=== PATIENT | female | born 1995 | race African-American/Black ===

== ENCOUNTER 2016-09-05 10:11 | Emergency (ER) | payer OTHER ==
[~2016-09-05] VITALS: Ht 167.6 cm; Wt 77.5 kg
[~2016-09-05 10:11] MED LIST: ALBU8I INH; AMOX875T PO; BIRTHCONTROL PATCH
[2016-09-05 10:12] VITALS: BP 130/89; PULSE 70; RESP 14; TEMP 97.9; O2SAT 99
--- NOTE | 2016-09-05 10:25 | PD ---
HPI . left thumb laceration check Chief Complaint: Wound/Suture/Staple Re-Check Time Seen by Provider: 10:25 Travel History International Travel<30 days: No Contact w/Intl Traveler<30days: No Traveled to known affect area: No History of Present Illness HPI 21-year-old female here with complaints of sustaining a left thumb laceration a few days ago. She went to another hospital and had Dermabond placed at the site. She is here for recheck. She says she went to an urgent care that would not take her insurance and they sent her to the emergency department. She tells me that she thinks she needs more Dermabond or sutures. She is also concerned because she works in [employer] and concerned that she will get this extremity too wet and it will loosen. She was never given any type of excuse or for work. PFSH Past Medical History Hx Anticoagulant Therapy: No Asthma: Yes Cardiovascular Problems: Yes (PRECARDIAL CATCH SYNDROME) Chemotherapy: No Cerebrovascular Accident: No Diabetes: No Diminished Hearing: No Respiratory: Yes (ASTHMA) Immunizations Current: Yes ?: Not Menopausal: No Past Surgical History Hysterectomy: No Social History Alcohol Use: Yes Tobacco Use: No Substance Use: No Allergies-Medications (Allergen,Severity, Reaction): Uncoded Allergies: ORANGES (Allergy, Severe, Anaphylaxis, 01/13/14) Reported Meds & Prescriptions Reported Meds & Active Scripts Active Reported [albuterol sulfate] 8 Gm INH DAILY [Birthcontrol Patch] Review of Systems General / Constitutional: No: Fever Eyes: No: Visual changes HENT: No: Headaches Cardiovascular: No: Chest Pain or Discomfort Respiratory: No: Shortness of Breath Gastrointestinal: No: Abdominal Pain Genitourinary: No: Dysuria Musculoskeletal: No: Pain Skin: Positive Other (left thumb laceration ), No Rash Neurologic: No: Weakness Psychiatric: No: Depression Endocrine: No: Polydipsia Hematologic/Lymphatic: No: Easy Bruising Physical Exam Narrative GENERAL: AAO x 3, no acute distress, Well-nourished, well-developed patient. SKIN: Warm and dry. No visible rashes or bruising. left thumb near anatomical snuffbox; 1 cm laceration that is healing well. There is no dehiscence or cellulitis present. HEAD: Normocephalic and atraumatic. EYES: No scleral icterus. No injection or drainage. ENT: No nasal drainage noted. Airway patent. NECK: Supple, trachea midline. No JVD. CARDIOVASCULAR: Regular rate and rhythm without murmurs, gallops, or rubs. RESPIRATORY: Breath sounds equal bilaterally. No accessory muscle use. No rhonchi or rales. GASTROINTESTINAL: Visual inspection normal EXTREMITIES: No cyanosis or edema. BACK: Nontender without obvious deformity. No CVA tenderness. PSYCH: AAO x 3, normal affect. Data Data Last Documented VS Vital Signs Date Time Temp Pulse Resp B/P Pulse Ox O2 Delivery O2 Flow Rate FiO2 09/05/16 10:12 97.9 70 14 130/89 99 MDM Medical Decision Making Medical Screen Exam Complete: Yes Emergency Medical Condition: Yes Medical Record Reviewed: Yes Differential Diagnosis wound recheck, less likely wound dehiscence, less likely cellulitis Narrative Course 21-year-old female here with complaints of sustaining a left thumb laceration a few days ago. She went to another hospital and had Dermabond placed at the site. She is here for recheck. She says she went to an urgent care that would not take her insurance and they sent her to the emergency department. She tells me that she thinks she needs more Dermabond or sutures. She is also concerned because she works in [employer] and concerned that she will get this extremity too wet and it will loosen. She was never given any type of excuse or for work. Patient seen and examined. Her left thumb laceration is healing well. It does not need reapplication of Dermabond or sutures. I have discussed this at length with her. I recommend that she keep the area free of moisture. I have provided her with a work note stating this. I explained to her that I cannot write her a note stating that she should not work. Patient verbalized understanding of instructions, questions were answered, and thanked me for their care. I advised them if their condition worsens, please return to the nearest emergency room for further care. Diagnosis Primary Impression: H/O open hand wound Patient Instructions: General Instructions Departure Forms: Tests/Procedures, Work Release Enter return to work date: September 05, 2016 Special Instructions: try to keep left hand free from moisture Additional Instructions: Please return to emergency department if your symptoms return or worsen. Follow up with your primary care provider. Med/Other Pt SpecificInfo: No Change to Meds Disposition: 01 DISCHARGE HOME Condition: Stable Bushra Mary September 05, 2016 10:25
[2016-09-05] MEDS ORDERED: albuterol sulfate INH (10:34)
== END 2016-09-05 11:11 | disposition home or self-care (01) ==
LOC: NEPK 10:11
DX: S61.012A Laceration without foreign body of left thumb without damage to nail, initial encounter (principal); X58.XXXA Exposure to other specified factors, initial encounter
CPT/HCPCS: 99281

== ENCOUNTER 2016-12-26 16:01 | Emergency (ER) | payer OTHER ==
[~2016-12-26] VITALS: Ht 165.1 cm; Wt 80.0 kg
[~2016-12-26 16:01] MED LIST changes: -ALBU8I INH; -AMOX875T PO; +albuterol sulfate INH
[2016-12-26 16:02] VITALS: BP 135/76; PULSE 95; RESP 15; TEMP 98.2; O2SAT 98
[2016-12-26] MEDS ORDERED: MOBI15TA PO (16:25)
[2016-12-26] MEDS ORDERED: ROBA750T PO (16:25)
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
== END 2016-12-26 17:42 | disposition home or self-care (01) ==
LOC: NEPD 16:01
DX: S39.012A Strain of muscle, fascia and tendon of lower back, initial encounter (principal); V89.2XXA Person injured in unspecified motor-vehicle accident, traffic, initial encounter
CPT/HCPCS: 72100; 99284

== ENCOUNTER 2017-01-17 22:39 | Emergency (ER) | payer OTHER ==
[~2017-01-17] VITALS: Ht 165.1 cm; Wt 81.5 kg
[~2017-01-17 22:39] MED LIST changes: -BIRTHCONTROL PATCH; +MOBI15TA PO; +ROBA750T PO; -albuterol sulfate INH
[2017-01-17 22:40] VITALS: BP 137/75; PULSE 87; RESP 16; TEMP 98.5; O2SAT 100
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
== END 2017-01-17 23:35 | disposition left against medical advice (07) ==
LOC: NEPD 22:39
DX: S39.012A Strain of muscle, fascia and tendon of lower back, initial encounter (principal); V89.2XXA Person injured in unspecified motor-vehicle accident, traffic, initial encounter
CPT/HCPCS: 99281

== ENCOUNTER 2017-05-23 11:21 | Emergency (ER) | payer BC, OTHER ==
[~2017-05-23] VITALS: Ht 165.1 cm; Wt 79.0 kg
[2017-05-23 11:23] VITALS: BP 123/70; PULSE 85; RESP 15; TEMP 98.6; O2SAT 100
[2017-05-23 12:01] LABS: BILIRUBIN, URINE NEG (NEG); BLOOD, URINE MOD (NEG); GLUCOSE,URINE NEG (NEG); KETONE, URINE NEG (NEG); NITRITE,URINE NEG (NEG); SQUAMOUS EPITHELIAL CELL URINE 1 /hpf (0-5); URINE COLOR YELLOW (YELLW/STRAW); URINE LEUKOCYTE ESTERASE NEG (NEG)
[2017-05-23] MEDS ORDERED: SODIUM CHLOR 0.9% 1000 ML INJ 1,000 ML IV SCH (12:10)
[2017-05-23] MEDS ORDERED: SODIUM CHLORIDE 0.9% FLUSH 10 ML FLUSH IV FLUSH PRN (12:15)
[2017-05-23] MEDS ORDERED: FAMOTIDINE 20 MG/2 ML VIAL IV PUSH ONE (12:15)
[2017-05-23] MEDS ORDERED: ONDANSETRON HCL 4 MG/2 ML VIAL IVP ONE (12:15)
--- NOTE | 2017-05-23 12:18 | PD ---
HPI Chief Complaint: GI Complaint Time Seen by Provider: 12:05 Travel History International Travel<30 days: No Contact w/Intl Traveler<30days: No Traveled to known affect area: No History of Present Illness HPI 22-year-old female complains of right upper quadrant abdominal pain and nausea vomiting. Patient states the symptoms started 2 days ago. Patient states the pain in cramping pain and sharp pain localized to right upper quadrant of the abdomen. Patient denies any pain radiation. Patient states that she has intermittent nausea vomiting with the pain. Patient states that she has poor appetite and unable to keep much down for the past 3 days. Patient denies any fever chills. Patient denies any dysuria or frequency. Patient denies any vaginal discharge or bleeding. PFSH Past Medical History Hx Anticoagulant Therapy: No Asthma: Yes Cardiovascular Problems: Yes (PRECARDIAL CATCH SYNDROME) Chemotherapy: No Cerebrovascular Accident: No Diabetes: No Diminished Hearing: No Respiratory: Yes (ASTHMA) Immunizations Current: Yes ?: Unknown LMP: 03/2017 Menopausal: No Past Surgical History Hysterectomy: No Social History Alcohol Use: Yes Tobacco Use: No Substance Use: No Allergies-Medications (Allergen,Severity, Reaction): Coded Allergies: amoxicillin (Verified Allergy, Severe, Anaphylaxis, 05/23/17) Uncoded Allergies: ORANGES (Allergy, Severe, Anaphylaxis, 01/13/14) Reported Meds & Prescriptions Reported Meds & Active Scripts Active Robaxin (Methocarbamol) 750 Mg Tab 750 Mg PO QID Mobic (Meloxicam) 15 Mg Tab 15 Mg PO DAILY Review of Systems General / Constitutional: No: Fever Eyes: No: Visual changes HENT: No: Headaches Cardiovascular: No: Chest Pain or Discomfort Respiratory: No: Shortness of Breath Gastrointestinal: Positive: Nausea, Vomiting, Abdominal Pain Genitourinary: No: Dysuria Musculoskeletal: No: Pain Skin: No Rash Neurologic: No: Weakness Psychiatric: No: Depression Endocrine: No: Polydipsia Hematologic/Lymphatic: No: Easy Bruising Physical Exam Narrative GENERAL: Well-nourished, well-developed patient. SKIN: Focused skin assessment warm/dry. HEAD: Normocephalic. EYES: No scleral icterus. No injection or drainage. NECK: Supple, trachea midline. No JVD or lymphadenopathy. CARDIOVASCULAR: Regular rate and rhythm without murmurs, gallops, or rubs. RESPIRATORY: Breath sounds equal bilaterally. No accessory muscle use. GASTROINTESTINAL: Abdomen soft, nondistended. Patient has moderate tenderness on palpation right upper quadrant of the abdomen. No rebound tenderness. No mass. MUSCULOSKELETAL: No cyanosis, or edema. BACK: Nontender without obvious deformity. No CVA tenderness. Neurologic exam normal. Data Data Last Documented VS Vital Signs Date Time Temp Pulse Resp B/P (MAP) Pulse Ox O2 Delivery O2 Flow Rate FiO2 05/23/17 13:30 99 05/23/17 11:23 98.6 85 15 Orders Orders Ed Urine Pregnancytest Poc (05/23/17 11:28) Urinalysis - C+S If Indicated (05/23/17 11:28) Complete Blood Count With Diff (05/23/17 12:10) Comprehensive Metabolic Panel (05/23/17 12:10) Lipase (05/23/17 12:10) Us Abdomen Gallbladder (05/23/17 ) Iv Access Insert/Monitor (05/23/17 12:10) Ecg Monitoring (05/23/17 12:10) Oximetry (05/23/17 12:10) Ondansetron Inj (Zofran Inj) (05/23/17 12:15) Sodium Chlor 0.9% 1000 Ml Inj (Ns 1000 M (05/23/17 12:10) Sodium Chloride 0.9% Flush (Ns Flush) (05/23/17 12:15) Famotidine Inj (Pepcid Inj) (05/23/17 12:15) Ct Abd/Pel W/O Iv Contrast (05/23/17 14:15) Labs Laboratory Tests Test 05/23/17 11:30 05/23/17 13:30 Urine Color YELLOW Urine Turbidity CLEAR Urine pH 6.0 Urine Specific [place] 1.014 Urine Protein NEG mg/dL Urine Glucose (UA) NEG mg/dL Urine Ketones NEG mg/dL Urine Occult Blood MOD Urine Nitrite NEG Urine Bilirubin NEG Urine Urobilinogen LESS THAN 2.0 MG/DL Urine Leukocyte Esterase NEG Urine RBC 21 /hpf Urine WBC LESS THAN 1 /hpf Urine Squamous Epithelial Cells 1 /hpf Microscopic Urinalysis Comment CULT NOT INDICATED White Blood Count 5.5 TH/MM3 Red Blood Count 4.85 MIL/MM3 Hemoglobin 12.6 GM/DL Hematocrit 38.0 % Mean Corpuscular Volume 78.3 FL Mean Corpuscular Hemoglobin 25.9 PG Mean Corpuscular Hemoglobin Concent 33.1 % Red Cell Distribution Width 16.6 % Platelet Count 301 TH/MM3 Mean Platelet Volume 8.3 FL Neutrophils (%) (Auto) 57.6 % Lymphocytes (%) (Auto) 29.7 % Monocytes (%) (Auto) 10.6 % Eosinophils (%) (Auto) 1.2 % Basophils (%) (Auto) 0.9 % Neutrophils # (Auto) 3.2 TH/MM3 Lymphocytes # (Auto) 1.6 TH/MM3 Monocytes # (Auto) 0.6 TH/MM3 Eosinophils # (Auto) 0.1 TH/MM3 Basophils # (Auto) 0.0 TH/MM3 CBC Comment DIFF FINAL Differential Comment Blood Urea Nitrogen 6 MG/DL Creatinine 0.85 MG/DL Random Glucose 80 MG/DL Total Protein 7.6 GM/DL Albumin 3.8 GM/DL Calcium Level 8.7 MG/DL Alkaline Phosphatase 66 U/L Aspartate Amino Transf (AST/SGOT) 11 U/L Alanine Aminotransferase (ALT/SGPT) 17 U/L Total Bilirubin 0.6 MG/DL Sodium Level 138 MEQ/L Potassium Level 3.8 MEQ/L Chloride Level 107 MEQ/L Carbon Dioxide Level 27.2 MEQ/L Anion Gap 4 MEQ/L Estimat Glomerular Filtration Rate 100 ML/MIN Lipase 144 U/L [facility] Medical Decision Making Medical Screen Exam Complete: Yes Emergency Medical Condition: Yes Interpretation(s) Last Impressions Gall Bladder Ultrasound 05/23/17 0000 Signed Impressions: Service Date/Time: Tuesday, May 23, 2017 13:03 - CONCLUSION: 1. Trace right hydronephrosis. 2. Right upper quadrant abdominal ultrasound otherwise within normal limits. Roverto Haile MD [address] scan abdomen and pelvis negative acute pathology. CBC within normal limit. CMP within normal limit. UA is negative Differential Diagnosis Differential diagnosis including cholecystitis, gastritis, PUD, pancreatitis, colitis, UTI, pyelonephritis, nephrolithiasis. Narrative Course 22-year-old female with right upper quadrant abdominal pain and nausea vomiting. Normal saline solution 1 25 cc an hour. Pepcid 20 mg IV. Zofran 4 mg IV. Diagnosis Primary Impression: Abdominal pain Qualified Codes: R10.11 - Right upper quadrant pain Additional Impression: Gastritis Qualified Codes: K29.00 - Acute gastritis without bleeding Patient Instructions: General Instructions Additional Instructions: Take medication as directed. Follow-up with personal physician and GI specialist. Return if worse. Med/Other Pt SpecificInfo: Prescription(s) given Scripts Dicyclomine (Bentyl) 10 Mg Cap 10 MG PO TID Y for Bowel Management, #21 CAP 0 Refills Prov: Zackary uGerrero MD 05/23/17 Sucralfate (Carafate) 1 Gram Tab 1 GM PO QID for Ulcer Prevention, #120 TAB 0 Refills On empty stomach Prov: Zackary Guerrero MD 05/23/17 Pantoprazole (Protonix) 40 Mg Tab 40 MG PO DAILY for Reflux, #30 TAB 0 Refills Prov: Zackary Guerrero MD 05/23/17 Disposition: 01 DISCHARGE HOME Condition: Stable Zackary Guerrero MD May 23, 2017 12:18
[2017-05-23 13:30] VITALS: O2SAT 99
--- NOTE | 2017-05-23 13:45 | RADRPT ---
EXAM DATE/TIME: 05/23/2017 13:03 [facility] COMPARISON: No previous studies available for comparison. INDICATIONS : Right upper quadrant pain. MEDICAL HISTORY : Pericardial catch syndrome. Asthma. SURGICAL HISTORY : None. ENCOUNTER: Initial ACUITY: 1 day PAIN SCORE: 6/10 LOCATION: Right upper quadrant MEASUREMENTS: LIVER: 15.3 cm length COMMON DUCT: 3 mm RIGHT KIDNEY: 10.1 x 5.5 x 4.5 cm FINDINGS: LIVER: Normal echotexture without focal lesion or ductal dilatation. COMMON DUCT: No intraluminal mass or stone visualized. GALLBLADDER: Contains no stones, demonstrates no wall thickening or pericholecystic fluid. PANCREAS: The visualized portions are within normal limits. RIGHT KIDNEY: Trace hydronephrosis. Right kidney otherwise within normal limits. CONCLUSION: 1. Trace right hydronephrosis. 2. Right upper quadrant abdominal ultrasound otherwise within normal limits. Roverto Haile MD on May 23, 2017 at 13:41 Board Certified Radiologist. This report was verified electronically.
[2017-05-23 14:12] LABS: AUTOMATED NEUTROPHIL # 3.2 TH/MM3 (1.8-7.7); BASOPHIL % 0.9 % (0.0-2.0); EOSINOPHIL # 0.1 TH/MM3 (0-0.4); EOSINOPHIL % 1.2 % (0.0-4.0); HEMOGLOBIN 12.6 GM/DL (11.6-15.3); LYMPH % 29.7 % (9.0-44.0); LYMPHOCYTE # 1.6 TH/MM3 (1.0-4.8); MEAN CELL VOLUME 78.3 FL (80.0-100.0); MEAN CORPUSCULAR HEMOGLOBIN 25.9 PG (27.0-34.0); MEAN CORPUSCULAR HGB CONC 33.1 % (32.0-36.0); MEAN PLATELET VOLUME 8.3 FL (7.0-11.0); MONO % 10.6 % (0.0-8.0); MONOCYTE # 0.6 TH/MM3 (0-0.9); NEUT % 57.6 % (16.0-70.0); PLATELET COUNT 301 TH/MM3 (150-450); RED BLOOD COUNT 4.85 MIL/MM3 (4.00-5.30); RED CELL DISTRIBUTION WIDTH 16.6 % (11.6-17.2); WHITE BLOOD COUNT 5.5 TH/MM3 (4.0-11.0)
[2017-05-23 14:29] LABS: ALBUMIN 3.8 GM/DL (3.4-5.0); AST (GOT) 11 U/L (15-37); BICARBONATE 27.2 MEQ/L (21.0-32.0); BLOOD UREA NITROGEN 6 MG/DL (7-18); CALCIUM 8.7 MG/DL (8.5-10.1); CHLORIDE 107 MEQ/L (98-107); CREATININE 0.85 MG/DL (0.50-1.00); GLOMERULAR FILTRATION RATE 100 ML/MIN (>89); GLUCOSE,RANDOM 80 MG/DL (74-106); LIPASE 144 U/L (73-393); SODIUM (NA) 138 MEQ/L (136-145)
[2017-05-23 14:30] LABS: ALT (GPT) 17 U/L (10-53)
[2017-05-23 14:32] LABS: ALKALINE PHOSPHATASE 66 U/L (45-117); TOTAL BILIRUBIN ADULT 0.6 MG/DL (0.2-1.0); TOTAL PROTEIN 7.6 GM/DL (6.4-8.2)
--- NOTE | 2017-05-23 15:57 | RADRPT ---
EXAM DATE/TIME: 05/23/2017 15:02 [facility] COMPARISON: No previous studies available for comparison. INDICATIONS : Vomiting for 3 days ORAL CONTRAST: No oral contrast ingested. RADIATION DOSE: 6.81 CTDIvol (mGy) MEDICAL HISTORY : Cardiovascular disease. Precardial catch syndrome SURGICAL HISTORY : None. ENCOUNTER: Initial ACUITY: 3 days PAIN SCALE: 6/10 LOCATION: Bilateral mid abdomen TECHNIQUE: Volumetric scanning of the abdomen and pelvis was performed. Using automated exposure control and ad justment of the mA and/or kV according to patient size, radiation dose was kept as low as reasonably achievable to obtain optimal diagnostic quality images. DICOM format image data is available electro nically for review and comparison. FINDINGS: LOWER LUNGS: The visualized lower lungs are clear. LIVER: Homogeneous density without lesion. There is no dilation of the biliary tree. No calcified gallston es. SPLEEN: Normal size without lesion. PANCREAS: Within normal limits. KIDNEYS: Normal in size and shape. There is no mass, stone, or hydronephrosis. ADRENAL GLANDS: Within normal limits. VASCULAR: There is no aortic aneurysm. BOWEL/MESENTERY: No evidence of bowel dilatation. No free air. Appendix within normal limits. Trace free fluid in the pelvis. ABDOMINAL WALL: Within normal limits. RETROPERITONEUM: There is no lymphadenopathy. BLADDER: No wall thickening or mass. REPRODUCTIVE: Within normal limits. INGUINAL: There is no lymphadenopathy or hernia. MUSCULOSKELETAL: Within normal limits for patient age. CONCLUSION: No acute findings in the abdomen and pelvis. Roverto Haile MD on May 23, 2017 at 15:50 Board Certified Radiologist. This report was verified electronically.
[2017-05-23] MEDS ORDERED: DICY10 PO (16:08)
[2017-05-23] MEDS ORDERED: CARA1TAB6 PO (16:08)
[2017-05-23] MEDS ORDERED: PROT40TA PO (16:08)
== END 2017-05-23 16:27 | disposition home or self-care (01) ==
LOC: NEPD 11:21
DX: R10.11 Right upper quadrant pain (principal); K29.00 Acute gastritis without bleeding
CPT/HCPCS: 74176; 76705; 80053; 81001; 83690; 84703; 85025; 96361; 96374; 96375; 99285; J2405; J7030